=== PATIENT | female | born 1990 | race Caucasian/White ===

== ENCOUNTER 2017-04-01 23:17 | Emergency (ER) | payer OTHER ==
[2017-04-01 23:41] VITALS: BP 137/67
[2017-04-02] MEDS ORDERED: TETRACAINE HCL 0.5% OPH SOLN 2 ML OD ONE (00:03)
--- NOTE | 2017-04-02 00:40 | ER Document Report ---
ED General - General Chief Complaint: Foreign Body in Eye Stated Complaint: FOREIGN OBJECT IN EYE Time Seen by Provider: 04/02/17 00:03 Notes: Patient is a 26-year-old female without past medical history who presents with concerns of a possible foreign body in her left eye. States she was cutting a box of cleaning pads open today at work and felt something go into her left eye. States that since that time she has had a dull, scratching, irritating pain. No visual acuity changes. No discharge from the eye. States she did try to clean out with saline with minimal improvement of her symptoms. Nothing seems to worsen her symptoms. No history of similar symptoms in the past. She has not seen an caterpillar tractor operator or flow match sofa cutter regarding today's concerns. TRAVEL OUTSIDE OF THE [place] IN LAST 30 DAYS: No Past Medical History - General Information source: Patient - Social History Smoking Status: Never Smoker Frequency of alcohol use: None Drug Abuse: None Lives with: Spouse/Significant other Family History: Reviewed & Not Pertinent Patient has suicidal ideation: No Patient has homicidal ideation: No Renal/ Medical History: Denies: Hx Peritoneal Dialysis Review of Systems - Review of Systems Notes: Constitutional: Negative for fever. HENT: Negative for sore throat. Eyes: Positive for left eye discomfort Cardiovascular: Negative for chest pain. Respiratory: Negative for shortness of breath. Gastrointestinal: Negative for abdominal pain, vomiting or diarrhea. Genitourinary: Negative for dysuria. Musculoskeletal: Negative for back pain. Skin: Negative for rash. Neurological: Negative for headaches, weakness or numbness. 10 point ROS negative except as marked above and in HPI. Physical Exam - Vital signs Vitals: Temp Pulse Resp BP Pulse Ox 98.2 F 62 13 137/67 H 100 04/01/17 23:37 04/01/17 23:37 04/01/17 23:37 04/01/17 23:37 04/01/17 23:37 Interpretation: Normal Notes: PHYSICAL EXAMINATION: GENERAL: Well-appearing, well-nourished and in no acute distress. HEAD: Atraumatic, normocephalic. EYES: sclera anicteric, conjunctiva are normal. Fluorescein staining performed of the left eye. There is a small area of uptake consistent with a corneal abrasion on the inferior central aspect of the iris. Eyelid was flipped , no evidence of a foreign body. No significant scleral injection. Hyperlacrimation. No proptosis. Extraocular motions are intact bilaterally. ENT: Moist mucous membranes. NECK: Normal range of motion LUNGS: Normal work of breathing HEART: 2+ radial pulses bilaterally EXTREMITIES: no pitting or edema. No cyanosis. NEUROLOGICAL: No focal neurological deficits. Moves all extremities spontaneously and on command. PSYCH: Normal mood, normal affect. SKIN: Warm, Dry, normal turgor, no rashes or lesions noted. Course - Re-evaluation Re-evalutation: 04/02/17 01:16 Presentation of left eye irritation with a small corneal abrasion. I cannot find any evidence of a foreign body despite flipping both the superior and inferior lids and fluorescein staining. I see no evidence of a retained foreign body in eye at this time. Suspect patient's symptoms may be related to a small corneal abrasion. She has been started on Polytrim drops and instructed to follow-up with an caterpillar tractor operator in the morning. Return precautions reviewed at the bedside. - Vital Signs Vital signs: Temp Pulse Resp BP Pulse Ox 98.2 F 62 18 137/67 H 100 04/01/17 23:37 04/01/17 23:37 04/02/17 00:14 04/01/17 23:37 04/01/17 23:37 Discharge - Discharge Clinical Impression: Corneal abrasion, left Qualifiers: Encounter type: initial encounter Qualified Code(s): S05.02XA - Injury of conjunctiva and corneal abrasion without foreign body, left eye, initial encounter Condition: Good Disposition: HOME, SELF-CARE Instructions: Corneal Abrasion ([facility]) Additional Instructions: You have a corneal abrasion. This should improve in the next several days. You should apply the eye drops to the affected eye 3 times daily. Follow-up with your eye doctor at your earliest ability. Return if you have decreased vision, worsening pain, increased drainage from the eye, you notice redness or puffiness around the eye, you develop a fever greater than 101F, or you have any other symptoms that are concerning to you.
[2017-04-02] MEDS ORDERED: POLYMYXIN B SULFATE/TMP OPH SOLN (10 ML/ER DISP) OS SCH (00:45)
== END 2017-04-02 00:48 | disposition home or self-care (01) ==
LOC: ER 23:17
DX: S05.02XA Injury of conjunctiva and corneal abrasion without foreign body, left eye, initial encounter (principal); X58.XXXA Exposure to other specified factors, initial encounter; Y99.0 Civilian activity done for income or pay
CPT/HCPCS: 99283; J3490